=== PATIENT | female | born 1960 ===

== ENCOUNTER 2024-09-09 14:41 | Emergency (ER) | payer OTHER ==
[~2024-09-09] VITALS: Ht 160 cm; Wt 61.2 kg
[2024-09-09] MEDS ORDERED: 0.9 % SODIUM CHLORIDE 1,000 ML IV SCH (15:55)
[2024-09-09] MEDS ORDERED: ONDANSETRON HCL 2 MG/ML VIAL IV STA (16:03)
[2024-09-09] MEDS ORDERED: FAMOTIDINE/PF 20 MG in 0.9 % SODIUM CHLORIDE 8 ML IV PUSH STA (16:03)
[2024-09-09] MEDS ORDERED: ONDANSETRON HCL 2 MG/ML VIAL ONE (16:04)
[2024-09-09] MEDS ORDERED: FAMOTIDINE/PF 20 MG/2 ML VIAL ONE (16:04)
[2024-09-09 16:24] LABS: HEMATOCRIT 39.6 % (36.0-45.00); HEMOGLOBIN 13.8 g/dL (12.0-15.00); MEAN CELL VOLUME 105.4 fL (80.00-100.00); MEAN CORPUSCULAR HEMOGLOBIN 36.6 pg (27.00-32.0); MEAN CORPUSCULAR HGB CONC 34.8 g/dl (32.0-36.0); RED BLOOD COUNT 3.76 M/uL (4.00-6.00); RED CELL DISTRIBUTION WIDTH 13.7 % (11.5-14.5)
[2024-09-09 16:35] LABS: ALBUMIN 3.5 gm/dL (3.4-5.0); BILIRUBIN TOTAL 1.64 mg/dL (0.3-1.2); CALCIUM 9.1 mg/dL (8.5-10.1); CREATININE SERUM 1.19 mg/dL (0.55-1.02); GFR 45.67; GLOBULINA 4.2 G/DL (2.4-3.5); POTASSIUM 3.69 mEq/L (3.5-5.1); TOTAL PROTEIN 7.7 gm/dL (6.4-8.2)
[2024-09-09 17:00] LABS: PLATELET COUNT 88 K/uL (150-450)
[2024-09-09] MEDS ORDERED: THIAMINE HCL 100 MG/ML 2 ML VIAL ONE (17:29)
[2024-09-09] MEDS ORDERED: THIAMINE HCL 100 MG/ML 2 ML VIAL IV ONE (17:30)
[2024-09-09 18:40] LABS: URINE APPEARANCE Cloudy; URINE BILIRRUBIN Negative (NEGATIVE); URINE BLOOD Small; URINE COLOR Yellow; URINE GLUCOSE Negative (NEGATIVE); URINE KETONE Trace (NEGATIVE); URINE LEUKOCYTE Trace; URINE NITRATE Negative
[2024-09-09 18:44] LABS: URINE CAST 8.54 uL (0.0-1.40); URINE EPITHELIAL CELLS 119.5 uL (0.0-38.8); URINE RBC 17.3 uL (0.0-20.8); URINE WBC 79.4 uL (0.0-23.2)
[2024-09-09 18:59] LABS: URINE BACTERIA > 9821.5 uL (0.0-1933); URINE PROTEIN 300 (NEGATIVE)
[2024-09-09] MEDS ORDERED: NITROFURANTOIN100 MG PO (19:04)
== END 2024-09-09 19:44 | disposition home or self-care (01) ==
LOC: ER 14:41
PROVIDERS: Emergency Medicine
DX: R55 Syncope and collapse (principal); E11.9 Type 2 diabetes mellitus without complications; I10 Essential (primary) hypertension; Z20.822 Contact with and (suspected) exposure to COVID-19

== ENCOUNTER 2024-12-15 13:54 | Inpatient (IN) | payer OTHER ==
[~2024-12-15] VITALS: Ht 167.6 cm; Wt 66.7 kg
[~2024-12-15 13:54] MED LIST: ENALAPRIL MALEA10 MG; NITROFURANTOIN100 MG PO
[2024-12-15] MEDS ORDERED: ENALAPRIL MALEAT5 MG (14:07)
--- NOTE | 2024-12-15 14:10 | NUR ---
SE RECIBE PTE ALERTA Y ORIENTADA X3 EN ABMULANCIA VITAL LINE. LOS MISMO REFIERE ALCOHOL INTOXICATION. SE MIEDEN S/V Y SE UBICA.
[2024-12-15] MEDS ORDERED: FAMOTIDINE/PF 20 MG in 0.9 % SODIUM CHLORIDE 8 ML IV PUSH STA (14:27)
[2024-12-15] MEDS ORDERED: ONDANSETRON HCL 2 MG/ML VIAL IV ONE (14:30)
[2024-12-15] MEDS ORDERED: THIAMINE HCL 100 MG/ML 2 ML VIAL IV ONE (14:30)
[2024-12-15] MEDS ORDERED: 0.9 % SODIUM CHLORIDE 1,000 ML IV SCH (14:30)
--- NOTE | 2024-12-15 14:53 | NUR ---
PTE EVALUADA POR EL DR. GO. SE OIRNETA OSBRE TRATAMIENTO, VERBALIZA ENTENDER. SE CANALIZA, COELCTA MUESTRAS DE LAB Y SE ADMINISTRA MEDICAMENTO CASIE ORDEN MEDICA BAJO MEDIDAS ASEPTICAS.
[2024-12-15 15:13] LABS: BASO % 0.9 % (0.1-1.2); EOS # 0.07 (0.04-0.54); EOS % 0.9 % (0.7-7.0); LYMPH # 2.00 (1.18-3.74); LYMPH % 25.1 % (19.3-53.1); MEAN PLATELET VOLUME 11.50 fl (9.4-12.4); MONO # 0.28 (0.24-0.82); MONO % 3.5 % (4.7-12.5); NEUT # 5.50 (1.56-6.13); NEUT % 69.1 % (34.0-71.1); RED CELL DISTRIBUTION WIDTH 13.4 % (11.6-14.4)
[2024-12-15 15:46] LABS: ALT/SGPT 135.0 U/L (12-78); AST/SGOT 162.0 U/L (15-37); BILIRUBIN TOTAL 1.59 mg/dL (0.3-1.2); BILIRUBIN,CONJUGATED 0.72 mg/dL (0.0-0.2); BUN CREA RATIO 10.0 (7.0-25.0); CREATININE SERUM 1.13 mg/dL (0.55-1.02); GFR 48.32; GLOBULINA 4.2 G/DL (2.4-3.5); GLUCOSE FASTING 163.0 mg/dL (65-100); LDH 303.0 U/L (84-246); OSMOLALITY SERUM 294.0 MOSM/KG (275-295); PHOSPHOKINASE CREATININE 333.0 U/L (26-192)
[2024-12-15 15:48] LABS: FECAL LEUKOCYTES NEGATIVE (NEGATIVE); ob POSITIVE (NEGATIVE)
[2024-12-15] MEDS ORDERED: METOCLOPRAMIDE HCL 5 MG/ML VIAL IM STA (18:10)
[2024-12-15 20:42] LABS: URINE APPEARANCE Cloudy; URINE BILIRRUBIN Negative (NEGATIVE); URINE BLOOD Small; URINE COLOR Yellow; URINE GLUCOSE Negative (NEGATIVE); URINE KETONE Negative (NEGATIVE); URINE LEUKOCYTE Trace; URINE NITRATE Negative; URINE UROBILINOGEN 1.0 E.U./dl
[2024-12-15 20:45] LABS: URINE BACTERIA 1266.7 uL (0.0-1933); URINE CAST 6.62 uL (0.0-1.40); URINE EPITHELIAL CELLS 147.5 uL (0.0-38.8); URINE RBC 9.7 uL (0.0-20.8); URINE WBC 50.1 uL (0.0-23.2)
[2024-12-15 20:57] LABS: COCAINE POSITIVE (NEGATIVE); METHADONE NEGATIVE (NEGATIVE); OPIATES NEGATIVE (NEGATIVE); THC ( Cannabinoids) NEGATIVE (NEGATIVE)
[2024-12-15 21:20] LABS: URINE PROTEIN 100 (NEGATIVE)
[2024-12-15 21:24] LABS: URINE YEAST NEGATIVE /hpf
[2024-12-15] MEDS ORDERED: LORazepam 2 MG/ML VIAL IV PRN (23:45)
[2024-12-15] MEDS ORDERED: MORPHINE SULFATE 4 MG/ML CARTRIDGE IV PRN (23:45)
[2024-12-15] MEDS ORDERED: ONDANSETRON HCL 4 MG in 0.9 % SODIUM CHLORIDE 50 ML IV PRN (23:45)
[2024-12-16 00:29] VITALS: BP 130/77; O2SAT 97
[2024-12-16 01:55] LABS: BASO % 0.2 % (0.1-1.2); EOS # 0.00 (0.04-0.54); EOS % 0.0 % (0.7-7.0); LYMPH # 0.64 (1.18-3.74); LYMPH % 4.9 % (19.3-53.1); MEAN PLATELET VOLUME 11.00 fl (9.4-12.4); MONO # 0.51 (0.24-0.82); MONO % 3.9 % (4.7-12.5); NEUT # 11.84 (1.56-6.13); NEUT % 90.4 % (34.0-71.1); RED CELL DISTRIBUTION WIDTH 13.7 % (11.6-14.4)
[2024-12-16 02:28] LABS: COVID-19 AG NEGATIVE (NEGATIVE)
[2024-12-16 02:41] LABS: INR 1.44
[2024-12-16 02:44] LABS: ALT/SGPT 288.0 U/L (12-78); AST/SGOT 529.0 U/L (15-37); BILIRUBIN TOTAL 1.46 mg/dL (0.3-1.2); BILIRUBIN,CONJUGATED 0.68 mg/dL (0.0-0.2); BUN CREA RATIO 14.0 (7.0-25.0); CHOL HDL RATIO 2.2 (0-5.0); CREATININE SERUM 1.18 mg/dL (0.55-1.02); GFR 45.97; GLOBULINA 3.7 G/DL (2.4-3.5); HDL 53.0 mg/dl (40-60); LDL 48.0 mg/dl (0-130); TSH 1.31 uIU/mL (0.358-3.74); VLDL 18.0 (0-39)
[2024-12-16 03:03] LABS: GLUCOSE FASTING 205.0 mg/dL (65-100); OSMOLALITY SERUM 300.0 MOSM/KG (275-295)
[2024-12-16 05:00] VITALS: BP 128/63; O2SAT 95
[2024-12-16 08:23] VITALS: BP 125/72
[2024-12-16] MEDS ORDERED: PANTOPRAZOLE SODIUM 40 MG/VIAL VIAL IV SCH (12:00)
[2024-12-16] MEDS ORDERED: LORazepam 2 MG/ML VIAL IV PRN (12:35)
[2024-12-16 22:15] VITALS: BP 156/66; O2SAT 97
[2024-12-17] VITALS: BP 131/66; O2SAT 92
[2024-12-17 09:38] VITALS: BP 141/75
[2024-12-17 18:44] VITALS: BP 147/71
== END 2024-12-17 19:37 | disposition home or self-care (01) | DRG 446 ==
LOC: ER 13:54 → MEDI 23:40
PROVIDERS: General Practice; ADMIT Internal Medicine; ATTEND Internal Medicine
PROC: BW40ZZZ Ultrasonography of Abdomen (ICD-10-PCS; principal; 2024-12-15)
PROC: BW21ZZZ Computerized Tomography (CT Scan) of Abdomen and Pelvis (ICD-10-PCS; 2024-12-16)
PROC: B020ZZZ Computerized Tomography (CT Scan) of Brain (ICD-10-PCS; 2024-12-16)
DX: K80.00 Calculus of gallbladder with acute cholecystitis without obstruction (principal); E88.89 Other specified metabolic disorders; F10.129 Alcohol abuse with intoxication, unspecified